=== PATIENT | female | born 1955 | race Caucasian/White ===

== ENCOUNTER → 2021-01-01 | Outpatient (CLI) | payer OTHER | LOC: ECHO 10:00 | DX: I10 Essential (primary) hypertension (principal); I08.3 Combined rheumatic disorders of mitral, aortic and tricuspid valves; I27.20 Pulmonary hypertension, unspecified; R00.2 Palpitations; M77.9 Enthesopathy, unspecified | CPT/HCPCS: ECHO; 93306 ==

== ENCOUNTER → 2021-09-18 | Outpatient (CLI) | payer OTHER | LOC: MAMO 07-17 15:30 | DX: Z12.31 Encounter for screening mammogram for malignant neoplasm of breast (principal) | CPT/HCPCS: 77063; 77067 ==

== ENCOUNTER → 2022-02-15 | Outpatient (CLI) | payer BC | LOC: RAD 12:02 | DX: R05.9 Cough, unspecified (principal); R91.8 Other nonspecific abnormal finding of lung field | CPT/HCPCS: 71046 ==